=== PATIENT | female | born 1970 | race Caucasian/White ===

== ENCOUNTER 2023-11-10 21:48 | Emergency (ER) | payer OTHER, SELFPAY ==
[2023-11-10 22:28] LABS: Specific Gravity 1.008 (1.005-1.030); Urine Bilirubin NEGATIVE (Negative); Urine Blood Negative (Negative); Urine Clarity Clear (Clear); Urine Color Colorless (Yellow); Urine Glucose NEGATIVE (Negative); Urine Ketones NEGATIVE (Negative); Urine Microscopic Reflex YN NO UMIC; Urine Nitrite NEGATIVE (Negative); Urine Protein NEGATIVE (Negative); Urine Urobilinogen Normal (Normal); Urine pH 5.5 (5.0-7.0)
[2023-11-10 23:11] LABS: Absolute Eosinophils 0.1 K/uL (0-0.5); Absolute Lymphocytes (CBC) 2.9 K/uL (0.7-4.9); Absolute Monocytes 0.6 K/uL (0.1-1.3); Absolute Neutrophil 5.3 K/uL (1.8-8.0); Basophils % 0.5 % (0-1.3); Eosinophils % 1.2 % (0-4.4); Hematocrit 37.2 % (36.0-45.0); Hemoglobin 12.4 g/dL (12.0-15.0); Lymphocytes % 32.3 % (15.3-44.8); MCH 30.5 pg (27.0-35.0); MCHC 33.4 g/dL (32.0-36.0); MCV 91.3 fL (80-100); MPV 8.5 fL (7.6-11.3); Monocytes % 6.6 % (3.3-12.3); Neutrophils % 59.4 % (41.7-73.7); Nucleated Red Blood Cells % 0.1 % (0-0); Platelets 228 thou/uL (152-406); RBC Red Blood Cell Count 4.07 M/uL (3.86-4.86); Red Cell Distribution Width 14.1 % (12.1-15.2)
[2023-11-10 23:27] LABS: Albumin/Globulin Ratio 1.3 (1.1-1.8); Anion Gap 6.4 mEq/L (5.0-15.0); Bilirubin Total 0.5 mg/dL (0.2-1.0); Globulin 3.2 g/dL (2.3-3.5); Potassium 3.4 mEq/L (3.5-5.1); Protein, Total 7.2 g/dL (6.4-8.2)
[2023-11-11] MEDS ORDERED: ONDANSETRON 4 MG/2 ML VIAL ONE (01:14)
[2023-11-11] MEDS ORDERED: NA CHLORIDE 0.9% 1,000 ML ONE (01:15)
[2023-11-11] MEDS ORDERED: MORPHINE 4 MG/ML SYR ONE (01:15)
--- NOTE | 2023-11-11 02:52 | EDPHYS ---
Physician Documentation [facility] Name: Asuncion Harper Age: 53 yrs Sex: Female : 1970 Arrival Date: 11/10/2023 Time: 21:48 Bed DX3 Private MD: ED Physician Enrique Boyd HPI: 11/09 22:27 This 53 yrs old Female presents to ER via Ambulatory with complaints of Abdominal Pain, sb4 Nausea/Vomiting, Fever. 22:27 The patient presents with abdominal pain right lower quadrant. Onset: The sb4 symptoms/episode began/occurred 3 day(s) ago. The symptoms radiate to the right shoulder. Associated signs and symptoms: Pertinent positives: nausea and vomiting, fever. The patient has not experienced similar symptoms in the past. The patient has not recently seen a physician. 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 - Infectious Disease History:: Denies. - Social history:: Smoking status: Patient denies any tobacco usage or history of. Patient/guardian denies using alcohol. ROS: 22:27 Respiratory: Negative for shortness of breath, cough, wheezing, and pleuritic chest sb4 pain, 22:27 Constitutional: Positive for fever, 22:27 Cardiovascular: Positive for 22:27 Abdomen/GI: Positive for abdominal pain, nausea and vomiting, 22:27 All other systems are negative, Exam: 22:27 Head/Face: Normocephalic, atraumatic. Eyes: Extra-ocular motions intact. Periorbital sb4 areas with no swelling, redness, or edema. ENT: Mucous membranes moist. Cardiovascular: Regular rate and rhythm with a normal S1 and S2. Respiratory: Lungs have equal breath sounds bilaterally, clear to auscultation and percussion. No rales, rhonchi or wheezes noted. No increased work of breathing, no retractions or nasal flaring. 22:27 Constitutional: The patient appears alert, awake, uncomfortable, 22:27 Abdomen/GI: Inspection: abdomen appears normal, Bowel sounds: normal, Palpation: soft, moderate abdominal tenderness, in the right lower quadrant and left lower quadrant, Indicators: Rovsing's sign is positive, Vital Signs: 21:57 BP 148 / 97; Pulse 69; Resp 18; Temp 98.3(O); Pulse Ox 96% ; Weight 64.86 kg; Height 5 tm6 ft. 1 in. ; Pain 10/30; 11/10 02:58 BP 133 / 84; Pulse 67; Resp 18; Pulse Ox 99% on R/A; oe 11/09 21:57 Body Mass Index 27.02 (64.86 kg, 154.94 cm) tm6 11/09 21:57 Pain Scale: Adult tm6 MDM: 11/09 22:07 Patient medically screened. 4 11/10 02:50 Data reviewed: vital signs, nurses notes, lab test result(s), radiologic studies, CT cp scan, and as a result, I will discharge patient. 02:50 Differential diagnosis: cholecystitis, Cholelithiasis, diverticulitis, non-specific abd cp pain, pancreatitis, Peptic Ulcer Disease, Perf. Duodenal Ulcer, Perf. Gastric Ulcer, Pyelonephritis, urinary tract infection. I considered the following discharge prescriptions or medication management in the emergency department Medications were administered in the Emergency Department. See MAR. Response to treatment: the patient's symptoms have markedly improved after treatment, and as a result, I will discharge patient. Special discussion: Based on the patient's Hx, exam, and Dx evaluation, there is no indication for emergent surgery or inpatient Tx. It is understood by the patient/guardian that if the Sx's persist or worsen they need to return immediately for re-evaluation. 11/09 22:08 Order name: CBC with Diff; Complete Time: 23:22 sb4 11/09 22:08 Order name: CMP; Complete Time: 23:28 sb4 11/09 22:08 Order name: Lipase; Complete Time: 23:28 4 11/09 22:08 Order name: Test, Urine; Complete Time: 22:29 sb4 11/09 22:08 Order name: Urinalysis w/ reflexes; Complete Time: 22:29 sb4 11/09 22:08 Order name: CT Abd/Pelvis - IV Contrast Only sb4 11/09 22:08 Order name: IV Saline Lock; Complete Time: 22:55 sb4 11/09 22:08 Order name: Labs collected and sent; Complete Time: 22:55 sb4 Administered Medications: 01:23 Drug: NS 0.9% IV 1000 ml IV at 1 bolus Per protocol; 1000 mL bolus Route: IV; Rate: 1 cg bolus; Site: left antecubital; 03:43 Follow up: IV Status: Completed infusion; IV Intake: 1000ml vc1 01:24 Drug: Ondansetron IVP 4 mg IVP once; over 2 minutes Route: IVP; Site: left antecubital; cg 02:00 Follow up: Response: No adverse reaction; Marked relief of symptoms vc1 01:24 Drug: morphine IVP or IV 4 mg IVP once over 4 mins Route: IVP; Infused Over: 4 mins; cg Site: left antecubital; 03:44 Follow up: Response: No adverse reaction; Marked relief of symptoms vc1 03:11 Drug: metroNIDAZOLE IVPB 500 mg 100 ml IVPB once over 30 mins Volume: 100 ml; Route: vc1 IVPB; Infused Over: 30 mins; Site: left antecubital; 03:43 Follow up: IV Status: Completed infusion; IV Intake: 100ml vc1 03:11 Drug: Potassium PO Effervescent Tablet 25 mEq PO once; dissolve in 4 ounces of water or vc1 juice Route: PO; 03:38 Follow up: Response: No adverse reaction vc1 03:11 Drug: Ciprofloxacin PO 500 mg PO once Route: PO; vc1 03:37 Follow up: Response: No adverse reaction vc1 03:11 Drug: HYDROmorphone IVP 1 mg IVP once Route: IVP; Site: left antecubital; vc1 03:37 Follow up: Response: No adverse reaction vc1 03:37 Drug: Promethazine IM 25 mg IM once Route: IM; Site: right deltoid; vc1 03:43 Follow up: Response: No adverse reaction; Marked relief of symptoms vc1 Disposition: 11/11 01:19 Co-signature as Attending Physician, Enrique Body MD I agree with the assessment and princess plan of care. Disposition Summary: 11/11/23 02:50 Discharge Ordered Notes: Location: Home cp Problem: new cp Symptoms: have improved cp Condition: Stable cp Diagnosis - Indeterminate colitis cp - Nausea with vomiting, unspecified cp Followup: cp - With: Chaitanya Queen MD - When: 10 - 14 days - Reason: Recheck today's complaints Discharge Instructions: - Discharge Summary Sheet cp - Nausea and Vomiting, Adult cp - Colitis cp Forms: - Medication Reconciliation Form cp - Antibiotic Education cp - Prescription Opioid Use cp - Patient Portal Instructions cp - Leadership Thank You Letter cp Prescriptions: - Diflucan 150 mg Oral tablet - take 1 tablet ORAL route every other day As needed; 2 tablet; Refills: 0, cp Product Selection Permitted - Zofran 4 mg Oral Tablet - take 1 tablet ORAL route every 12 hours As needed; 20 tablet; Refills: 0, cp Product Selection Permitted - Cipro 500 mg Oral tablet - take 1 tablet ORAL route every 12 hours for 7 days; 20 tablet; Refills: 0, cp Product Selection Permitted - Metronidazole 500 mg Oral Tablet - take 1 tablet ORAL route every 8 hours; 30 tablet; Refills: 0, Product cp Selection Permitted - Tramadol 50 mg Oral Tablet - take 1 tablet ORAL route every 8 hours as needed; 12 tablet; Refills: 0, cp Product Selection Permitted Signatures: Dispatcher [employer] EDMS Enrique Boyd MD MD cha Page, Corey, PA PA cp Garcia, Cindy, RN RN cg Mindy Rosado RN RN vc1 Nadiya Randall PA-C PABoaz sb4 Katia Elliott RN RN tm6 Corrections: (The following items were deleted from the chart) 11/09 22:09 22:08 CBC+H.LAB.BRZ ordered. EDMS EDMS 22: 22:08 COMPREHENSIVE METABOLIC PANEL+C.LAB.BRZ ordered. EDMS EDMS 22: 22:08 LIPASE+C.LAB.BRZ ordered. EDMS EDMS 22: 22:08 Test, Urine+UC.LAB.BRZ ordered. EDMS EDMS 22: 22:08 Urinalysis+U.LAB.BRZ ordered. EDMS EDMS
--- NOTE | 2023-11-11 02:52 | ER ---
Nurse's Notes [facility] Name: Asuncion Harper Age: 53 yrs Sex: Female : 1970 Arrival Date: 11/10/2023 Time: 21:48 Bed DX3 Private MD: Diagnosis: Indeterminate colitis;Nausea with vomiting, unspecified Presentation: 11/09 21:58 Chief complaint: Patient states: starting 3 days ago, pain on right side, has been tm6 throwing up bile, pain is worse when she eats. Coronavirus screen: Vaccine status: Patient reports being unvaccinated. Ebola Screen: Patient negative for fever greater than or equal to 101.5 degrees Fahrenheit, and additional compatible Ebola Virus Disease symptoms Patient denies exposure to infectious person. Patient denies travel to an Ebola-affected area in the 21 days before illness onset. No symptoms or risks identified at this time. Initial Sepsis Screen: Does the patient meet any 2 criteria? No. Patient's initial sepsis screen is negative. Does the patient have a suspected source of infection? No. Patient's initial sepsis screen is negative. Risk Assessment: Do you want to hurt yourself or someone else? Patient reports no desire to harm self or others. Onset of symptoms was November 07, 2023. 21:58 Method Of Arrival: Ambulatory tm6 21:58 Acuity: HORACE 3 tm6 Triage Assessment: 22:00 General: Appears uncomfortable, Behavior is calm, cooperative. Pain: Complains of pain tm6 in right trapezius, right scapular area, right subscapular area, posterior aspect of right lateral abdomen and right lower quadrant Pain currently is 8 out of 10 on a pain scale. Quality of pain is described as stabbing, Pain began 2-3 days ago. EENT: No signs and/or symptoms were reported regarding the EENT system. Neuro: Level of Consciousness is awake, alert, obeys commands, Oriented to person, place, time, situation. Cardiovascular: Patient's skin is warm and dry. Respiratory: Airway is patent Respiratory effort is even, unlabored, Respiratory pattern is regular, symmetrical. GI: Abdomen is flat, non-distended, Reports lower abdominal pain, nausea, Pain is 8 out of 10 on a pain scale. vomiting. : No signs and/or symptoms were reported regarding the genitourinary system. Derm: No signs and/or symptoms reported regarding the dermatologic system. Musculoskeletal: No signs and/or symptoms reported regarding the musculoskeletal system. 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 - Infectious Disease History:: Denies. - Social history:: Smoking status: Patient denies any tobacco usage or history of. Patient/guardian denies using alcohol. Screenin/21 01:00 [facility] ED Fall Risk Assessment (Adult) History of falling in the last 3 months, vc1 including since admission No falls in past 3 months (0 pts) Confusion or Disorientation No (0 pts) Intoxicated or Sedated No (0 pts) Impaired Gait No (0 pts) Mobility Assist Device Used No (0 pt) Altered Elimination No (0 pt) Score/Fall Risk Level 0 - 2 = Low Risk Oriented to surroundings, Maintained a safe environment, Educated pt \T\ family on fall prevention, incl call for assistance when getting out of bed. Abuse screen: Denies threats or abuse. Nutritional screening: No deficits noted. Tuberculosis screening: No symptoms or risk factors identified. Assessment: 01:00 General: Appears in no apparent distress. uncomfortable, well groomed, well developed, vc1 Behavior is calm, cooperative, appropriate for age. Pain: Complains of pain in right lower quadrant and posterior aspect of right lateral abdomen. Neuro: Level of Consciousness is awake, alert, obeys commands, Oriented to person, place, time, situation, Appropriate for age. Cardiovascular: Heart tones S1 S2 present Capillary refill Patient's skin is warm and dry. Respiratory: Airway is patent Respiratory effort is even, unlabored, Respiratory pattern is regular, symmetrical, Breath sounds are clear bilaterally. GI: Bowel sounds present X 4 quads. Abd is soft Abdomen is tender to palpation in left lower quadrant Reports lower abdominal pain, upper abdominal pain, nausea, vomiting. : No deficits noted. No signs and/or symptoms were reported regarding the genitourinary system. EENT: No deficits noted. No signs and/or symptoms were reported regarding the EENT system. Derm: Skin is intact, Skin is dry, Skin is pale. Musculoskeletal: No deficits noted. No signs and/or symptoms reported regarding the musculoskeletal system. 03:41 Reassessment: Patient appears in no apparent distress at this time. Patient and/or vc1 family updated on plan of care and expected duration. Pain level reassessed. Patient is alert, oriented x 3, equal unlabored respirations, skin warm/dry/pink. Patient states symptoms have improved. Vital Signs: 11/09 21:57 BP 148 / 97; Pulse 69; Resp 18; Temp 98.3(O); Pulse Ox 96% ; Weight 64.86 kg; Height 5 tm6 ft. 1 in. ; Pain 8/10; 11/10 02:58 BP 133 / 84; Pulse 67; Resp 18; Pulse Ox 99% on R/A; oe 11/09 21:57 Body Mass Index 27.02 (64.86 kg, 154.94 cm) tm6 11/09 21:57 Pain Scale: Adult tm6 ED Course: 11/09 21:53 Patient arrived in ED. jj6 22:00 Triage completed. tm6 22:00 Arm band placed on right wrist. tm6 22:01 Nadiya Randall PA-C is PHCP. sb4 22:01 Enrique Boyd MD is Attending Physician. sb4 22:18 Test, Urine Sent. tm6 22:18 Urinalysis w/ reflexes Sent. tm6 22:55 CBC with Diff Sent. vk 22:55 CMP Sent. vk 22:55 Lipase Sent. vk 22:55 Initial lab(s) drawn, by pr, sent to lab. Inserted saline lock: 22 gauge in left vk antecubital area, using aseptic technique. Blood collected. Flushed with 10 mL NS. 11/10 01:00 CT Abd/Pelvis - IV Contrast Only In Process Unspecified. EDMS 01:23 PHCP role handed off by Nadiya Randall PA-C cp 01:23 Enrique Altamirano PA is PHCP. cp 02:50 Chaitanya Queen MD is Referral Physician. cp 03:41 No provider procedures requiring assistance completed. IV discontinued, intact, vc1 bleeding controlled, No redness/swelling at site. Pressure dressing applied. Administered Medications: 01:23 Drug: NS 0.9% IV 1000 ml IV at 1 bolus Per protocol; 1000 mL bolus Route: IV; Rate: 1 cg bolus; Site: left antecubital; 03:43 Follow up: IV Status: Completed infusion; IV Intake: 1000ml vc1 01:24 Drug: Ondansetron IVP 4 mg IVP once; over 2 minutes Route: IVP; Site: left antecubital; cg 02:00 Follow up: Response: No adverse reaction; Marked relief of symptoms vc1 01:24 Drug: morphine IVP or IV 4 mg IVP once over 4 mins Route: IVP; Infused Over: 4 mins; cg Site: left antecubital; 03:44 Follow up: Response: No adverse reaction; Marked relief of symptoms vc1 03:11 Drug: metroNIDAZOLE IVPB 500 mg 100 ml IVPB once over 30 mins Volume: 100 ml; Route: vc1 IVPB; Infused Over: 30 mins; Site: left antecubital; 03:43 Follow up: IV Status: Completed infusion; IV Intake: 100ml vc1 03:11 Drug: Potassium PO Effervescent Tablet 25 mEq PO once; dissolve in 4 ounces of water or vc1 juice Route: PO; 03:38 Follow up: Response: No adverse reaction vc1 03:11 Drug: Ciprofloxacin PO 500 mg PO once Route: PO; vc1 03:37 Follow up: Response: No adverse reaction vc1 03:11 Drug: HYDROmorphone IVP 1 mg IVP once Route: IVP; Site: left antecubital; vc1 03:37 Follow up: Response: No adverse reaction vc1 03:37 Drug: Promethazine IM 25 mg IM once Route: IM; Site: right deltoid; vc1 03:43 Follow up: Response: No adverse reaction; Marked relief of symptoms vc1 Medication: 03:41 VIS not applicable for this client. vc1 Intake: 03:43 IV: 100ml; Total: 100ml. vc1 03:43 IV: 1000ml; Total: 1100ml. vc1 Outcome: 02:50 Discharge ordered by cp 03:48 Discharged to home ambulatory, with friend, vc1 03:48 Condition: good 03:48 Discharge instructions given to patient, Instructed on discharge instructions, follow up and referral plans. Demonstrated understanding of instructions, follow-up care, medications, Prescriptions given X 5 03:48 Patient left the ED. vc1 Signatures: Dispatcher [employer] EDMS Enrique Altamirano PA PA cp Garcia, Cindy, RN RN Zeeshan Rebolledo Jennifer jj6 Mindy Rosado RN RN vc1 Nadiya Randall PA-C PA-C sb4 Masterson, Tawney, RN RN tm6 Karen Barahona
[2023-11-11] MEDS ORDERED: HYDROMORPHONE HCL 1 MG/ML INJ ONE (03:00)
[2023-11-11] MEDS ORDERED: POTASSIUM 25 MEQ EFFERV TAB ONE (03:01)
[2023-11-11] MEDS ORDERED: CIPROFLOXACIN HCL 500 MG TAB ONE (03:01)
[2023-11-11] MEDS ORDERED: METRONIDAZOLE 500mg IVPB 500 MG/100 ML BAG IV ONE (03:02)
[2023-11-11] MEDS ORDERED: PROMETHAZINE INJ 25 MG/ML AMP ONE (03:33)
[2023-11-11 04:12] VITALS: TEMP 98.3
[2023-11-11 04:13] VITALS: BP 133/84; O2SAT 99
--- NOTE | 2023-11-11 19:29 | RAD REPORT ---
EXAM DESCRIPTION: CT - Abdomen Pelvis W Contrast - 11/11/2023 6:32 am CLINICAL HISTORY: ABD PAIN COMPARISON: 01/04/2020 TECHNIQUE: CT of the abdomen and pelvis performed following the administration of IV contrast. No or al contrast. This exam was performed according to our departmental dose-optimization program, which i ncludes automated exposure control, adjustment of the mA and/or kV according to patient size and/or u se of iterative reconstruction technique. FINDINGS: Lung Bases: Mild atelectasis or scarring in the right middle lobe. Abdomen: Liver: The liver has normal contour and density. No suspicious mass. Gallbladder: No calcified gallstones. No significant biliary dilatation. Spleen, Pancreas, and Adrenal Glands: The spleen, pancreas, and adrenal glands are unremarkable. Kidneys: No suspicious mass. Nonobstructing calculus at the lower pole left kidney. There is mild left hydronephrosis without visualized distal obstructing calculus. No hydroureter. Vasculature: The aorta and IVC have normal caliber and position. The portal vein is patent. The pro ximal visceral and renal arteries are patent. Stomach: Tiny hiatal hernia. Other: No free intraperitoneal air. No free fluid or lymphadenopathy. Pelvis: Bladder: Urinary bladder is unremarkable. Bowel: Postsurgical changes in the rectosigmoid colon. There is wall thickening involving the ascen ding colon, slightly more pronounced proximally. Multiple fluid-filled small bowel loops in the lower abdomen and pelvis. No bowel obstruction. Appendix: Normal appendix. Pelvis: No suspicious mass. Bones: No destructive bone lesions identified. IMPRESSION: 1. Wall thickening involving the ascending colon, slightly more pronounced proximally. Findings could be due to colitis. Correlate with any history of inflammatory bowel disease. Cannot e xclude underlying pathology. 2. Multiple fluid-filled small bowel loops in the lower abdomen and pelvis could be due to enteriti s. 3. Mild left hydronephrosis without visualized distal obstructing calculus. Findings could be due t o a recently passed calculus. 4. Nonobstructing left renal calculus. Electronically signed by: Fatimah Galvez MD 11/11/2023 01:38 AM CDT RP Due to temporary technical issues with the PACS/Fluency reporting system, reports are being signed by the in house radiologists without review as a courtesy to insure prompt reporting. The interpreting radiologist is fully responsible for the content of the report.
== END 2023-11-11 03:48 | disposition home or self-care (01) ==
LOC: ER 21:48
DX: K52.3 Indeterminate colitis (principal); R11.2 Nausea with vomiting, unspecified; K21.9 Gastro-esophageal reflux disease without esophagitis; Z28.310 Unvaccinated for COVID-19
CPT/HCPCS: 36415; 74177; 80053; 81003; 81025; 83690; 85025; J1170; J2405; J2550; J7030; Q9967

== ENCOUNTER 2024-01-31 15:25 | Emergency (ER) | payer OTHER ==
[2024-01-31] MEDS ORDERED: FAMOTIDINE 20 MG/2 ML VIAL IV ONE (15:55)
[2024-01-31] MEDS ORDERED: ONDANSETRON 4 MG/2 ML VIAL ONE (15:55)
[2024-01-31] MEDS ORDERED: NA CHLORIDE 0.9% 1,000 ML ONE (15:55)
[2024-01-31 15:59] LABS: Specific Gravity 1.012 (1.005-1.030); Urine Bilirubin NEGATIVE (Negative); Urine Blood Negative (Negative); Urine Clarity Clear (Clear); Urine Color Colorless (Yellow); Urine Glucose NEGATIVE (Negative); Urine Ketones NEGATIVE (Negative); Urine Microscopic Reflex YN NO UMIC; Urine Nitrite NEGATIVE (Negative); Urine Protein NEGATIVE (Negative); Urine Urobilinogen Normal (Normal); Urine pH 7.5 (5.0-7.0)
[2024-01-31 16:00] LABS: Absolute Basophils 0.1 K/uL (0-0.5); Absolute Eosinophils 0.1 K/uL (0-0.5); Absolute Lymphocytes (CBC) 2.8 K/uL (0.7-4.9); Absolute Monocytes 0.5 K/uL (0.1-1.3); Absolute Neutrophil 6.7 K/uL (1.8-8.0); Basophils % 0.5 % (0-1.3); Eosinophils % 0.9 % (0-4.4); Hematocrit 39.6 % (36.0-45.0); Hemoglobin 12.7 g/dL (12.0-15.0); Lymphocytes % 27.4 % (15.3-44.8); MCH 29.6 pg (27.0-35.0); MCHC 32.2 g/dL (32.0-36.0); MPV 8.9 fL (7.6-11.3); Monocytes % 4.7 % (3.3-12.3); Neutrophils % 66.5 % (41.7-73.7); Platelets 243 thou/uL (152-406); Red Cell Distribution Width 13.6 % (12.1-15.2)
[2024-01-31] MEDS ORDERED: MORPHINE 4 MG/ML SYR ONE (16:09)
[2024-01-31 16:15] LABS: ALT/SGPT 20 U/L (13-56); Albumin 3.8 g/dL (3.4-5.0); Albumin/Globulin Ratio 1.1 (1.1-1.8); Alkaline Phosphatase 71 U/L (45-117); Anion Gap 5.5 mEq/L (5.0-15.0); BUN Blood Urea Nitrogen 15 mg/dL (7-18); Bicarbonate 34 mEq/L (21-32); Bilirubin Total 0.3 mg/dL (0.2-1.0); Globulin 3.4 g/dL (2.3-3.5); Glomerular Filtration Rate 73 ml/min (=/>90); Glucose Level 112 mg/dL (74-106); Lipase 571 U/L (13-75); Potassium 3.5 mEq/L (3.5-5.1); Protein, Total 7.2 g/dL (6.4-8.2); Sodium Level 140 mEq/L (136-145)
[2024-01-31 16:16] LABS: AST/SGOT < 10 U/L (15-37)
--- NOTE | 2024-01-31 17:13 | RAD REPORT ---
EXAMINATION: CT Abdomen Pelvis W Contrast CLINICAL INDICATION: Female, 53 years old. ABD PAIN TECHNIQUE: CT abdomen and pelvis was performed, after the administration of IV contrast, as per [facility] protocol. Axial, sagittal and coronal reconstructions were obtained. One or more of the following dose reduction techniques were used: Automated exposure control, adjustment of the mA and k V according to patient size, and iterative reconstruction. Unless otherwise specified, incidental findings do not require dedicated imaging follow-up. COMPARISON: 11/11/2023 FINDINGS: LOWER CHEST: The visualized lung bases are clear. LIVER: Normal in size and contour. No focal lesion. BILIARY SYSTEM: No suspicious abnormalities. SPLEEN: Normal size. No focal lesion. PANCREAS: No mass, ductal dilation, or filemon-pancreatic fluid. ADRENALS: Normal; no mass. KIDNEYS: Normal size and contour. No hydronephrosis. Nonobstructing left lower renal pole 4 mm calcul us. URINARY BLADDER: Unremarkable. GASTROINTESTINAL TRACT: Wall thickening near the GE junction, could relate to sequelae of esophagitis or reflux disease. Fluid opacification of nondistended distal small bowel and proximal colon, nonspecific, may reflect enterocolitis or diarrheal state. No evidence of free air, significant intra -abdominal free fluid, bowel obstruction or abscess. Sequelae of partial distal colectomy. APPENDIX: Normal appendix. LYMPH NODES: No lymphadenopathy. MUSCULOSKELETAL: No acute or suspicious osseous abnormality. ADDITIONAL FINDINGS: None. IMPRESSION: Fluid opacification of nondistended distal small bowel and proximal colon, nonspecific, may reflect e nterocolitis or diarrheal state. Nonobstructing left lower renal pole 4 mm calculus.
[2024-01-31] MEDS ORDERED: PANTOPRAZOLE 40 MG INJ ONE (17:30)
--- NOTE | 2024-01-31 17:40 | ER ---
Nurse's Notes [facility] Name: Asuncion Harper Age: 53 yrs Sex: Female : 1970 Arrival Date: 01/31/2024 Time: 15:25 Bed 8 Private MD: Diagnosis: Enterocolitis Presentation: 01/30 15:36 Chief complaint: Patient states: Left sided abdominal pain that radiates to back onset cm10 4 days ago. Pt reports heart burn, nausea, vomiting, and diarrhea. Pt reports having bright red blood in her stools. Pt currently on a medrol dose pack that was prescribed by PCP for inflammation. Coronavirus screen: Client denies travel out of the [place] in the last 14 days. Ebola Screen: Patient denies travel to an Ebola-affected area in the 21 days before illness onset. No symptoms or risks identified at this time. Initial Sepsis Screen: Does the patient meet any 2 criteria? No. Patient's initial sepsis screen is negative. Does the patient have a suspected source of infection? No. Patient's initial sepsis screen is negative. Risk Assessment: Do you want to hurt yourself or someone else? Patient reports no desire to harm self or others. Onset of symptoms was January 27, 2024. 15:36 Method Of Arrival: Ambulatory cm10 15:36 Acuity: HORACE 3 cm10 Triage Assessment: 15:39 General: Appears in no apparent distress. uncomfortable, Behavior is calm, cooperative. cm10 Pain: Complains of pain in left upper quadrant and left lower quadrant Pain radiates to left flank Pain currently is 7 out of 10 on a pain scale. Quality of pain is described as sharp, shooting, stabbing, Pain began 4 days ago Is continuous. Neuro: No deficits noted. Level of Consciousness is awake, alert, obeys commands, Oriented to person, place, time, situation, Appropriate for age. Respiratory: No deficits noted. Airway is patent Respiratory effort is even, unlabored, Respiratory pattern is regular, symmetrical. GI: Reports lower abdominal pain, upper abdominal pain, diarrhea, bloody stool, nausea, vomiting. 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 - Infectious Disease History:: Denies. - Social history:: Smoking status: unknown. Screenin:04 [facility] ED Fall Risk Assessment (Adult) History of falling in the last 3 months, ko1 including since admission No falls in past 3 months (0 pts) Confusion or Disorientation No (0 pts) Intoxicated or Sedated No (0 pts) Impaired Gait No (0 pts) Mobility Assist Device Used No (0 pt) Altered Elimination No (0 pt) Score/Fall Risk Level 0 - 2 = Low Risk Oriented to surroundings, Maintained a safe environment, Educated pt \T\ family on fall prevention, incl call for assistance when getting out of bed, Assessed \T\ reinforced patient's understanding of fall precautions, Provided non-skid footwear, Hourly rounding (assess needs \T\ fall precautionary measures) done. Abuse screen: Denies threats or abuse. Denies injuries from another. Nutritional screening: No deficits noted. Tuberculosis screening: No symptoms or risk factors identified. Assessment: 16:05 General: Appears ill, Behavior is calm, cooperative, appropriate for age. Pain: ko1 Complains of pain in back and left flank. Neuro: No deficits noted. Cardiovascular: No deficits noted. Respiratory: No deficits noted. GI: Reports lower abdominal pain, bloody stool, indigestion. : No deficits noted. EENT: No deficits noted. Derm: No deficits noted. Musculoskeletal: No deficits noted. Vital Signs: 15:36 BP 121 / 82; Pulse 63; Resp 15; Temp 97.7(O); Pulse Ox 99% on R/A; Weight 64.86 kg; cm10 Height 5 ft. 1 in. ; Pain 7/10; 16:04 BP 108 / 64; Pulse 62; Resp 15; Pulse Ox 100% ; ko1 16:34 BP 102 / 73; Pulse 53; Resp 16; Pulse Ox 100% ; ko1 18:03 BP 112 / 75; Pulse 64; Resp 18; Pulse Ox 99% ; ko1 15:36 Body Mass Index 27.02 (64.86 kg, 154.94 cm) cm10 15:36 Pain Scale: Adult cm10 ED Course: 15:28 Patient arrived in ED. mg5 15:31 Sw[facility] Christianson [facility]C [facility] kb 15:31 Enrique Boyd MD is Attending Physician. kb 15:38 Triage completed. cm10 15:40 Arm band placed on right wrist. Patient placed in an exam room, on a stretcher. cm10 15:47 CBC with Diff Sent. cm10 15:47 CMP Sent. cm10 15:47 Lipase Sent. cm10 15:47 Urinalysis w/ reflexes Sent. cm10 15:47 Initial lab(s) drawn, by me, sent to lab. Urine collected: clean catch specimen. cm10 Inserted saline lock: 20 gauge in right antecubital area, using aseptic technique. Blood collected. Flushed with 10 mL NS. 16:03 Blanquita Morillo, ES is Primary Nurse. ko1 16:04 Patient has correct armband on for positive identification. Allergy band placed. Placed ko1 in gown. Bed in low position. Call light in reach. Side rails up X2. Provided Education on: labs, meds. Pulse ox on. NIBP on. Door closed. Noise minimized. Lights dimmed. Warm blanket given. Pillow given. Assisted to bathroom. 16:04 No provider procedures requiring assistance completed. ko1 16:54 CT Abd/Pelvis - IV Contrast Only In Process Unspecified. EDMS 18:03 IV discontinued, intact, bleeding controlled, No redness/swelling at site. Pressure ko1 dressing applied. Administered Medications: 15:56 Drug: NS 0.9% IV 1000 ml IV at 1 bolus Per protocol; to be given as a bolus over 60 ko1 minutes Route: IV; Rate: 1 bolus; Site: right forearm; 17:41 Follow up: Response: No adverse reaction; IV Status: Completed infusion; IV Intake: ko1 1000ml 15:57 Drug: Ondansetron IVP 4 mg IVP once; over 2 minutes Route: IVP; Site: right forearm; ko1 16:12 Follow up: Response: No adverse reaction ko1 16:02 Drug: Famotidine IVP 20 mg IVP once; dilute with 10 mL 0.9% NaCl; give over 2 minutes ko1 Route: IVP; Site: right forearm; 16:17 Follow up: Response: No adverse reaction ko1 16:14 Drug: morphine IVP or IV 4 mg IVP once over 4 mins Route: IVP; Infused Over: 4 mins; ko1 Site: right forearm; 16:29 Follow up: Response: No adverse reaction ko1 17:31 Drug: Pantoprazole IVP 40 mg IVP once Route: IVP; Site: right antecubital; ko1 17:46 Follow up: Response: No adverse reaction ko1 17:41 CANCELLED (Duplicate Order): fentanyl (pf)25 mcg IVP once kb 17:50 Drug: Ketorolac IVP 15 mg IVP once Route: IVP; Site: right antecubital; ko1 18:05 Follow up: Response: No adverse reaction ko1 17:50 Drug: Dicyclomine PO 20 mg PO once Route: PO; ko1 18:05 Follow up: Response: No adverse reaction; Medication administered at discharge. ko1 17:57 Drug: Ciprofloxacin PO 500 mg PO once Route: PO; ko1 18:04 Follow up: Response: Medication administered at discharge. ko1 17:57 Drug: metroNIDAZOLE PO 500 mg PO once Route: PO; ko1 18:04 Follow up: Response: No adverse reaction; Medication administered at discharge. ko1 Medication: 16:04 VIS not applicable for this client. ko1 Intake: 17:41 IV: 1000ml; Total: 1000ml. ko1 Outcome: 17:39 Discharge ordered by . kb 18:05 Discharged to home ambulatory, with family, ko1 18:05 Condition: stable 18:05 Discharge instructions given to patient, Instructed on discharge instructions, follow up and referral plans. medication usage, Demonstrated understanding of instructions, follow-up care, medications, Prescriptions given X 4, 18:06 Patient left the ED. ko1 Signatures: Dispatcher [employer] EDSweta Arriola, SUMMER NANNY-C SUMMER NANNY-Blanquita Fiore RN RN ko1 Velvet Lai RN RN Shannon Thompson mg5
--- NOTE | 2024-01-31 17:40 | EDPHYS ---
Physician Documentation [facility] Name: Asuncion Harper Age: 53 yrs Sex: Female : 1970 Arrival Date: 01/31/2024 Time: 15:25 Bed 8 Private MD: ED Physician Enrique Boyd HPI: 01/30 16:58 This 53 yrs old Female presents to ER via Ambulatory with complaints of Bloody Stools, kb Abdominal Pain. 16:58 Pt is a 53 year old female who presents for LLq pain, nausea, vomiting and diarrhea kb that started 4 days ago. States pain radiates to back. Reports bright red blood in stool as well. States she had a colon resection in 2012 due to diverticulitis and has had this pain and associated symptoms since then. Has appt with GI on 02/04/24. denies fever. . 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 - Infectious Disease History:: Denies. - Social history:: Smoking status: unknown. ROS: 16:59 Constitutional: As per HPI kb Exam: 16:59 Constitutional: This is a well developed, well nourished patient who is awake, alert, kb and in no acute distress. Head/Face: Normocephalic, atraumatic. ENT: Moist Mucous membranes Cardiovascular: Regular rate Respiratory: Respirations even and unlabored. No increased work of breathing. Talking in full sentences Skin: Warm, dry with normal turgor. Normal color. MS/ Extremity: Pulses equal, no cyanosis. Neurovascular intact. Full, normal range of motion. Neuro: Awake and alert, GCS 15, oriented to person, place, time, and situation. 16:59 Abdomen/GI: Inspection: abdomen appears normal, Bowel sounds: normal, Palpation: soft, in all quadrants, mild abdominal tenderness, in the left lower quadrant, 16:59 Back: CVA tenderness, that is mild, is noted on the left, Vital Signs: 15:36 BP 121 / 82; Pulse 63; Resp 15; Temp 97.7(O); Pulse Ox 99% on R/A; Weight 64.86 kg; cm10 Height 5 ft. 1 in. ; Pain 7/10; 16:04 BP 108 / 64; Pulse 62; Resp 15; Pulse Ox 100% ; ko1 16:34 BP 102 / 73; Pulse 53; Resp 16; Pulse Ox 100% ; ko1 18:03 BP 112 / 75; Pulse 64; Resp 18; Pulse Ox 99% ; ko1 15:36 Body Mass Index 27.02 (64.86 kg, 154.94 cm) cm10 15:36 Pain Scale: Adult cm10 MDM: 15:31 Medical Screening Exam initiated kb 17:00 Data reviewed: vital signs, nurses notes. kb 17:38 Differential diagnosis: colitis, diverticulitis. Management of patient was discussed with the following: Dr Boyd, recommends antibiotics and keep appt with GI in 4 days. Counseling: I had a detailed discussion with the patient and/or guardian regarding the historical points, exam findings, and any diagnostic results supporting the discharge/admit diagnosis, lab results, radiology results, the need for outpatient follow up, a tour narrator, to return to the emergency department if symptoms worsen or persist or if there are any questions or concerns that arise at home. 01/30 15:40 Order name: CBC with Diff; Complete Time: 16:05 kb 01/30 15:40 Order name: CMP; Complete Time: 16:19 kb 01/30 15:40 Order name: Lipase; Complete Time: 16:19 kb 01/30 15:40 Order name: Urinalysis w/ reflexes; Complete Time: 15:59 kb 01/30 15:40 Order name: CT Abd/Pelvis - IV Contrast Only; Complete Time: 17:13 kb 01/30 15:40 Order name: IV Saline Lock; Complete Time: 15:47 kb 01/30 15:40 Order name: Labs collected and sent; Complete Time: 15:47 kb Administered Medications: 15:56 Drug: NS 0.9% IV 1000 ml IV at 1 bolus Per protocol; to be given as a bolus over 60 ko1 minutes Route: IV; Rate: 1 bolus; Site: right forearm; 17:41 Follow up: Response: No adverse reaction; IV Status: Completed infusion; IV Intake: ko1 1000ml 15:57 Drug: Ondansetron IVP 4 mg IVP once; over 2 minutes Route: IVP; Site: right forearm; ko1 16:12 Follow up: Response: No adverse reaction ko1 16:02 Drug: Famotidine IVP 20 mg IVP once; dilute with 10 mL 0.9% NaCl; give over 2 minutes ko1 Route: IVP; Site: right forearm; 16:17 Follow up: Response: No adverse reaction ko1 16:14 Drug: morphine IVP or IV 4 mg IVP once over 4 mins Route: IVP; Infused Over: 4 mins; ko1 Site: right forearm; 16:29 Follow up: Response: No adverse reaction ko1 17:31 Drug: Pantoprazole IVP 40 mg IVP once Route: IVP; Site: right antecubital; ko1 17:46 Follow up: Response: No adverse reaction ko1 17:41 CANCELLED (Duplicate Order): fentanyl (pf)25 mcg IVP once kb 17:50 Drug: Ketorolac IVP 15 mg IVP once Route: IVP; Site: right antecubital; ko1 18:05 Follow up: Response: No adverse reaction ko1 17:50 Drug: Dicyclomine PO 20 mg PO once Route: PO; ko1 18:05 Follow up: Response: No adverse reaction; Medication administered at discharge. ko1 17:57 Drug: Ciprofloxacin PO 500 mg PO once Route: PO; ko1 18:04 Follow up: Response: Medication administered at discharge. ko1 17:57 Drug: metroNIDAZOLE PO 500 mg PO once Route: PO; ko1 18:04 Follow up: Response: No adverse reaction; Medication administered at discharge. ko1 Disposition Summary: 01/31/24 17:39 Discharge Ordered Notes: Location: Home kb Condition: Stable kb Diagnosis - Enterocolitis kb Followup: kb - With: Emergency Department - When: As needed - Reason: Worsening of condition Followup: kb - With: Private Physician - When: 2 - 3 days - Reason: Recheck today's complaints, Continuance of care, Re-evaluation by your physician Discharge Instructions: - Discharge Summary Sheet kb - Viral Gastroenteritis, Adult, [id number] kb - Colitis kb Forms: - Medication Reconciliation Form kb - Antibiotic Education kb - Prescription Opioid Use kb - Patient Portal Instructions kb - Leadership Thank You Letter kb Prescriptions: - Cipro 500 mg Oral Tablet - take 1 tablet ORAL route every 12 hours for 10 days; 20 tablet; Refills: 0, kb Product Selection Permitted - Flagyl 500 mg Oral Tablet - take 1 tablet ORAL route every 8 hours for 10 days; 30 tablet; Refills: 0, kb Product Selection Permitted - Zofran 4 mg Oral tablet - take 1 tablet ORAL route every 6 hours As needed; 12 tablet; Refills: 0, kb Product Selection Permitted - dicyclomine 20 mg Oral tablet - take 1 tablet ORAL route 4 times per day As needed; 20 tablet; Refills: 0, kb Product Selection Permitted Signatures: Dispatcher [employer] EDMS Sweta Christianson, IOS DEVELOPER-C IOS DEVELOPER-Blanquita Fiore, RN RN ko1 Velvet Lai RN RN cm10 Corrections: (The following items were deleted from the chart) 15:41 15:41 CBC+H.LAB.BRZ ordered. EDMS EDMS 15:41 15:41 COMPREHENSIVE METABOLIC PANEL+C.LAB.BRZ ordered. EDMS EDMS 15:41 15:41 LIPASE+C.LAB.BRZ ordered. EDMS EDMS 15:41 15:41 Urinalysis+U.LAB.BRZ ordered. EDMS EDMS 15:41 15:41 Abdomen Pelvis W Con+CT.RAD.BRZ ordered. EDMS EDMS 16:59 16:58 Pt is a 53 year old female who presents for LLq pain, nausea, vomiting and kb diarrhea . kb 17:41 17:38 fentaNYL (PF) IVP 25 mcg IVP once ordered. kb kb
[2024-01-31] MEDS ORDERED: DICYCLOMINE HCL 10 MG CAP ONE (17:47)
[2024-01-31] MEDS ORDERED: KETOROLAC 30 MG/ML INJ ONE (17:47)
[2024-01-31] MEDS ORDERED: CIPROFLOXACIN HCL 500 MG TAB ONE (17:48)
[2024-01-31] MEDS ORDERED: metroNIDAZOLE 500 MG TABLET ONE (17:48)
[2024-01-31 18:31] VITALS: TEMP 97.7
[2024-01-31 18:34] VITALS: BP 112/75; O2SAT 99
== END 2024-01-31 18:06 | disposition home or self-care (01) ==
LOC: ER 15:25
DX: K52.9 Noninfective gastroenteritis and colitis, unspecified (principal)
CPT/HCPCS: 85025; 36415; 81003; 83690; 80053; 74177; 99284; Q9967; J2470; J2405; J7030

== ENCOUNTER 2024-06-07 15:41 | Emergency (ER) | payer OTHER ==
[2024-06-07 17:27] LABS: Absolute Basophils 0.1 K/uL (0-0.5); Absolute Lymphocytes (CBC) 1.9 K/uL (0.7-4.9); Absolute Monocytes 0.4 K/uL (0.1-1.3); Absolute Neutrophil 7.7 K/uL (1.8-8.0); Basophils % 0.6 % (0-1.3); Eosinophils % 0.4 % (0-4.4); Hematocrit 39.9 % (36.0-45.0); Hemoglobin 13.4 g/dL (12.0-15.0); Lymphocytes % 19.2 % (15.3-44.8); MCH 30.2 pg (27.0-35.0); MCHC 33.7 g/dL (32.0-36.0); MCV 89.6 fL (80-100); MPV 8.6 fL (7.6-11.3); Monocytes % 4.1 % (3.3-12.3); Neutrophils % 75.7 % (41.7-73.7); Nucleated Red Blood Cells % 0.1 % (0-0); Platelets 217 thou/uL (152-406); RBC Red Blood Cell Count 4.45 M/uL (3.86-4.86); Red Cell Distribution Width 14.2 % (12.1-15.2)
[2024-06-07 17:29] LABS: Specific Gravity 1.013 (1.005-1.030); Sqamous Epithelial <5 /HPF (None Seen); Urine Bacteria <20 /HPF (<20); Urine Bilirubin NEGATIVE (Negative); Urine Blood Negative (Negative); Urine Clarity Clear (Clear); Urine Color Colorless (Yellow); Urine Crystals Unidentified Few /HPF (None Seen); Urine Culture Reflex Order NOT NEEDED; Urine Glucose NEGATIVE (Negative); Urine Ketones NEGATIVE (Negative); Urine Microscopic Reflex YN ORDER UMIC; Urine Mucus Slight /HPF (None Seen); Urine Nitrite NEGATIVE (Negative); Urine Protein NEGATIVE (Negative); Urine RBC <5 /HPF (None Seen); Urine Urobilinogen Normal (Normal); Urine WBC <5 /HPF (<5)
[2024-06-07 18:14] LABS: ALT/SGPT 24 U/L (13-56); AST/SGOT 14 U/L (15-37); Alkaline Phosphatase 95 U/L (45-117); Anion Gap 9.3 mEq/L (5.0-15.0); BUN Blood Urea Nitrogen 12 mg/dL (7-18); Bicarbonate 31 mEq/L (21-32); Bilirubin Total 0.4 mg/dL (0.2-1.0); Glomerular Filtration Rate 74 ml/min (=/>90); Glucose Level 112 mg/dL (74-106); Lipase 43 U/L (13-75); Potassium 3.3 mEq/L (3.5-5.1); Sodium Level 139 mEq/L (136-145)
[2024-06-07 18:21] LABS: Troponin High Sensitivity < 3.0 pg/mL (<58.9)
--- NOTE | 2024-06-07 19:30 | RAD REPORT ---
EXAMINATION: CT ABDOMEN AND PELVIS WITH CONTRAST CLINICAL INDICATION: ABD PAIN TECHNIQUE: CT abdomen and pelvis was performed, after the administration of IV contrast, [facility]. Axial, sagittal and coronal reconstructions were obtained. One or more of the following dose reduction techniques were used: Automated exposure control, adjustment of the mA and k V according to patient size, and iterative reconstruction. Unless otherwise specified, incidental findings do not require dedicated imaging follow-up. COMPARISON: No prior exam. FINDINGS: LOWER CHEST: The visualized lung bases are clear. LIVER: Normal in size and contour. No focal lesion. Grossly unremarkable gallbladder. SPLEEN: Normal size. No focal lesion. PANCREAS: No mass, ductal dilation, or filemon-pancreatic fluid. ADRENALS: Normal; no mass. KIDNEYS: 3 mm stone inferior calyx left kidney. 3 mm stone mid left ureter resulting in mild left hyd ronephrosis. No right-sided stone or hydronephrosis. GASTROINTESTINAL TRACT: No evidence of free air, significant intra-abdominal free fluid, bowel obstru ction or abscess. Mild mucosal thickening of the cecum. Postsurgical changes involve the sigmoid colon. APPENDIX: Normal appendix. LYMPH NODES: No lymphadenopathy. MUSCULOSKELETAL: Mild anterolisthesis L4 on 5. ADDITIONAL FINDINGS: None. IMPRESSION: 3 mm stone mid left ureter results in mild left hydronephrosis. Additional 3 mm stone inferior calyx left kidney.
--- NOTE | 2024-06-07 20:09 | EDPHYS ---
Physician Documentation [facility] Name: Asuncion Harper Age: 53 yrs Sex: Female : 1970 Arrival Date: 06/07/2024 Time: 15:41 Bed 8 Private MD: ED Physician Kamaljit Mondragon HPI: 06/07 18:16 This 53 yrs old Female presents to ER via Ambulatory with complaints of Back Pain, jj9 Abdominal Pain, Nausea. 18:16 53-year-old female comes to the emergency department complaining of 3 days of jj9 right-sided abdominal pain that radiates to the back. The pain has been present before she also reports nausea and vomiting. She denies fever, chills or any other problem.. 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 - Infectious Disease History:: Denies. - Social history:: Smoking status: unknown. ROS: 18:17 Constitutional: Negative for fever, chills, and weight loss, Eyes: Negative for injury, jj9 pain, redness, and discharge, ENT: Negative for injury, pain, and discharge, Neck: Negative for injury, pain, and swelling, Cardiovascular: Negative for chest pain, palpitations, and edema, Respiratory: Negative for shortness of breath, cough, wheezing, and pleuritic chest pain, Abdomen/GI: Abdominal pain Back: Negative for injury and pain, MS/Extremity: Negative for injury and deformity, Skin: Negative for injury, rash, and discoloration, Neuro: Negative for headache, weakness, numbness, tingling, and seizure, Psych: Negative for depression, anxiety, suicide ideation, homicidal ideation, and hallucinations, Allergy/Immunology: Negative for hives, rash, and allergies, Endocrine: Negative for neck swelling, polydipsia, polyuria, polyphagia, and marked weight changes, Hematologic/Lymphatic: Negative for swollen nodes, abnormal bleeding, and unusual bruising, Exam: 18:18 Constitutional: This is a well developed, well nourished patient who is awake, alert, jj9 and in no acute distress. Head/Face: Normocephalic, atraumatic. Eyes: Pupils equal round and reactive to light, extra-ocular motions intact. Lids and lashes normal. Conjunctiva and sclera are non-icteric and not injected. Cornea within normal limits. Periorbital areas with no swelling, redness, or edema. ENT: Nares patent. No nasal discharge, no septal abnormalities noted. Tympanic membranes are normal and external auditory canals are clear. Oropharynx with no redness, swelling, or masses, exudates, or evidence of obstruction, uvula midline. Mucous membranes moist. Neck: Trachea midline, no thyromegaly or masses palpated, and no cervical lymphadenopathy. Supple, full range of motion without nuchal rigidity, or vertebral point tenderness. No Meningismus. Chest/axilla: Normal chest wall appearance and motion. Nontender with no deformity. No lesions are appreciated. Cardiovascular: Regular rate and rhythm with a normal S1 and S2. No gallops, murmurs, or rubs. Normal PMI, no JVD. No pulse deficits. Respiratory: Lungs have equal breath sounds bilaterally, clear to auscultation and percussion. No rales, rhonchi or wheezes noted. No increased work of breathing, no retractions or nasal flaring. Abdomen/GI: Right-sided abdominal pain extending to the back and lower abdomen to the suprapubic area. Back: No spinal tenderness. No costovertebral tenderness. Full range of motion. Skin: Warm, dry with normal turgor. Normal color with no rashes, no lesions, and no evidence of cellulitis. MS/ Extremity: Pulses equal, no cyanosis. Neurovascular intact. Full, normal range of motion. Neuro: Awake and alert, GCS 15, oriented to person, place, time, and situation. Cranial nerves II-XII grossly intact. Motor strength 5/5 in all extremities. Sensory grossly intact. Cerebellar exam normal. Normal gait. Psych: Awake, alert, with orientation to person, place and time. Behavior, mood, and affect are within normal limits. Vital Signs: 16:19 BP 122 / 95; Pulse 81; Resp 19; Temp 98.4; Pulse Ox 100% on R/A; Weight 59.87 kg; iw Height 5 ft. 1 in. ; Pain 8/10; 18:24 BP 107 / 75; Pulse 68; Resp 18; Pulse Ox 99% on R/A; ld1 20:32 BP 116 / 84; Pulse 68; Resp 15; Pulse Ox 99% ; cm10 16:19 Body Mass Index 24.94 (59.87 kg, 154.94 cm) iw 16:19 Pain Scale: Adult iw MDM: 16:01 Medical Screening Exam initiated jj9 18:18 Differential diagnosis: Pyelonephritis Colitis, diverticulitis, pyelonephritis, jj9 cholecystitis, cholelithiasis, choledocholithiasis, pancreatitis etc. Data reviewed: vital signs, nurses notes. 19:19 ED course: 53-year-old female comes to the emergency department complaining of jj9 right-sided abdominal pain of 3 days duration associated with nausea and vomiting. The patient has history of chronic abdominal problems including previous surgeries with colon resection. Labs were reviewed and within normal normal kidney function. No electrolyte abnormalities. CT scan of the abdomen shows a 3 mm stone mid left ureter with mild left hydronephrosis additional 3 mm stone inferior calyx left kidney. The patient reports history of kidney stones and she is aware of the stone on the left side however she has no flank pain. Her pain is on the right side. There is no intra-abdominal pathology to account for the pain on the right side. The patient reports she has had this intermittent pain and she follows with GI. Will give her a dose of Toradol IV. And discharged home advised to continue home medications, follow-up with GI and return to emergency department worsening of symptoms or if any other problems. The patient understands and agrees with the plan.. 06/07 16:50 Order name: CBC with Diff; Complete Time: 19:19 cm10 06/07 16:50 Order name: CMP; Complete Time: 19:19 cm10 06/07 16:50 Order name: Lipase; Complete Time: 19:19 cm10 06/07 16:50 Order name: Urinalysis w/ reflexes; Complete Time: 19:19 cm10 18 17:27 Order name: Troponin High Sensitivity; Complete Time: 19:19 EDMS 06/07 18:16 Order name: CT Abd/Pelvis - IV Contrast Only; Complete Time: 19:56 jj9 06/07 17:19 Order name: EKG; Complete Time: 17:19 cm10 06/07 16:50 Order name: IV Saline Lock; Complete Time: 17:18 cm10 06/07 16:50 Order name: Labs collected and sent; Complete Time: 17:18 cm10 18 17:19 Order name: EKG - Nurse/Tech; Complete Time: 17:44 cm10 Administered Medications: 20:25 Drug: Ketorolac IVP 30 mg IVP once Route: IVP; Site: right antecubital; cm10 20:31 Follow up: Response: Medication administered at discharge. cm10 Disposition Summary: 06/07/24 20:08 Discharge Ordered Notes: Location: Home jj9 Problem: chronic jj9 Symptoms: have worsened jj9 Condition: Stable jj9 Diagnosis - Abdominal pain, unspecified jj9 Followup: jj9 - With: Private Physician - When: - Reason: Re-evaluation by your physician Discharge Instructions: - Discharge Summary Sheet jj9 - Abdominal Pain, Adult jj9 Forms: - Medication Reconciliation Form jj9 - Antibiotic Education jj9 - Prescription Opioid Use jj9 - Patient Portal Instructions jj9 - Leadership Thank You Letter jj9 Signatures: Dispatcher [employer] EDLadi Estrada RN RN iw Velvet Lai RN RN cm10 Kamaljit Mondragon MD MD jj9 Corrections: (The following items were deleted from the chart) 17:27 17:16 Troponin High Sensitivity+C.LAB.BRZ ordered. EDMS EDMS 18:16 18:16 Abdomen Pelvis W Con+CT.RAD.BRZ ordered. EDIL EDMS 20:07 19:19 ED course: 53-year-old female comes to the emergency department complaining of jj9 right-sided abdominal pain of 3 days duration associated with nausea and vomiting. The patient has history of chronic abdominal problems including previous surgeries with colon resection. Labs were reviewed and within normal normal kidney function. No electrolyte abnormalities. CT scan of the abdomen pelvis have been requested and is pending. The case was signed out to the incoming physician pending CT scan report and final disposition.. jj9
--- NOTE | 2024-06-07 20:09 | ER ---
Nurse's Notes [facility] Name: Asuncion Harper Age: 53 yrs Sex: Female : 1970 Arrival Date: 06/07/2024 Time: 15:41 Bed 8 Private MD: Diagnosis: Abdominal pain, unspecified Presentation: 06/07 16:19 Chief complaint: Patient states: LLQ pain X 3 days, radiates to back, also has nausea iw and diarrhea. Coronavirus screen: Client presents with at least one sign or symptom that may indicate coronavirus-19. Ebola Screen: No symptoms or risks identified at this time. Initial Sepsis Screen: Does the patient meet any 2 criteria? No. Patient's initial sepsis screen is negative. Does the patient have a suspected source of infection? No. Patient's initial sepsis screen is negative. Risk Assessment: Do you want to hurt yourself or someone else? Patient reports no desire to harm self or others. Onset of symptoms was June 04, 2024. 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 - Infectious Disease History:: Denies. - Social history:: Smoking status: unknown. Screenin:46 [facility] ED Fall Risk Assessment (Adult) History of falling in the last 3 months, cm10 including since admission No falls in past 3 months (0 pts) Confusion or Disorientation No (0 pts) Intoxicated or Sedated No (0 pts) Impaired Gait No (0 pts) Mobility Assist Device Used No (0 pt) Altered Elimination No (0 pt) Score/Fall Risk Level 0 - 2 = Low Risk Oriented to surroundings, Maintained a safe environment, Hourly rounding (assess needs \T\ fall precautionary measures) done. Abuse screen: Denies threats or abuse. Denies injuries from another. Nutritional screening: No deficits noted. Tuberculosis screening: No symptoms or risk factors identified. Assessment: 17:44 General: Appears in no apparent distress. uncomfortable, Behavior is calm, cooperative. cm10 Pain: Complains of pain in chest and right lower quadrant Pain radiates to back Pain currently is 8 out of 10 on a pain scale. Neuro: No deficits noted. Level of Consciousness is awake, alert, obeys commands, Oriented to person, place, time, situation, Appropriate for age. Cardiovascular: Reports chest pain. Respiratory: No deficits noted. Airway is patent Respiratory effort is even, unlabored, Respiratory pattern is regular, symmetrical. GI: Abdomen is flat, non-distended, Abd is soft Reports nausea. 20:32 Reassessment: Patient appears in no apparent distress at this time. Patient and/or cm10 family updated on plan of care and expected duration. Pain level reassessed. Patient is alert, oriented x 3, equal unlabored respirations, skin warm/dry/pink. Vital Signs: 16:19 BP 122 / 95; Pulse 81; Resp 19; Temp 98.4; Pulse Ox 100% on R/A; Weight 59.87 kg; iw Height 5 ft. 1 in. ; Pain 8/10; 18:24 BP 107 / 75; Pulse 68; Resp 18; Pulse Ox 99% on R/A; ld1 20:32 BP 116 / 84; Pulse 68; Resp 15; Pulse Ox 99% ; cm10 16:19 Body Mass Index 24.94 (59.87 kg, 154.94 cm) iw 16:19 Pain Scale: Adult iw ED Course: 15:44 Patient arrived in ED. al6 16:01 Kamaljit Mondragon MD is Attending Physician. [email or web address] 16:20 Triage completed. iw 16:20 Arm band placed on. iw 17:18 Velvet Lai, RN is Primary Nurse. cm10 17:18 CBC with Diff Sent. cm10 17:18 CMP Sent. cm10 17:18 Urinalysis w/ reflexes Sent. cm10 17:18 Lipase Sent. cm10 17:19 Initial lab(s) drawn, by me, sent to lab. Urine collected: clean catch specimen. cm10 Inserted saline lock: 20 gauge in right antecubital area, using aseptic technique. Blood collected. Flushed with 10 mL NS. 17:44 Patient has correct armband on for positive identification. Placed in gown. Bed in low cm10 position. Call light in reach. Side rails up X2. Client placed on continuous cardiac and pulse oximetry monitoring. NIBP monitoring applied. air sampling and monitoring on. 17:44 EKG done, by ED staff, reviewed by Kamaljit Mondragon MD. cm10 19:06 CT Abd/Pelvis - IV Contrast Only In Process Unspecified. EDMS 20:32 No provider procedures requiring assistance completed. IV discontinued, intact, cm10 bleeding controlled, No redness/swelling at site. Pressure dressing applied. 20:33 Provided Education on: Follow-up instructions. cm10 Administered Medications: 20:25 Drug: Ketorolac IVP 30 mg IVP once Route: IVP; Site: right antecubital; cm10 20:31 Follow up: Response: Medication administered at discharge. cm10 Medication: 17:46 VIS not applicable for this client. cm10 Outcome: 20:08 Discharge ordered by MD. lomeli 20:33 Discharged to home ambulatory, cm10 20:33 Condition: good 20:33 Discharge instructions given to patient, Instructed on discharge instructions, follow up and referral plans. Demonstrated understanding of instructions, follow-up care, 20:34 Patient left the ED. cm10 Signatures: Dispatcher [employer] EDMS Ladi Connor RN ES iw Elaina Fox RN RN ld1 Velvet Lai RN RN cm10 Taylor [email or web address] Kamaljit Mondragon MD MD [email or web address] Corrections: (The following items were deleted from the chart) 17:27 17:18 Troponin High Sensitivity+C.LAB.BRZ drawn and sent. cm10 EDMS
[2024-06-07] MEDS ORDERED: KETOROLAC 30 MG/ML INJ ONE (20:19)
[2024-06-08 03:19] VITALS: TEMP 98.4
[2024-06-08 03:20] VITALS: O2SAT 99
[2024-06-08 03:21] VITALS: BP 116/84
--- NOTE | 2024-06-08 12:28 | EKG ---
Test Date: 2024-06-07 Test Time: 17:32:27 Playground Aide: [place] MEASUREMENT RESULTS: Intervals: Rate: 63 VT: 168 QRSD: 72 QT: 398 QTc: 407 [place]: P: 67 VT: 168 QRS: 74 T: 59 INTERPRETIVE STATEMENTS: Normal sinus rhythm with sinus arrhythmia Low voltage QRS Borderline ECG No previous ECG available for comparison Electronically Signed On 06-08-24 12:25:28 CDT by Roger Ortiz
== END 2024-06-07 20:34 | disposition home or self-care (01) ==
LOC: ER 15:41
DX: R10.31 Right lower quadrant pain (principal)
CPT/HCPCS: 93005; 85025; 81001; 36415; 84484; 83690; 80053; 74177; 96374; 99285; Q9967